=== PATIENT | female | born 2000 | race Caucasian/White ===

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

== ENCOUNTER 2022-01-20 08:12 | Emergency (ER) | payer BC, OTHER, SELFPAY ==
--- NOTE | 2022-01-20 08:17 | ED.URI ---
HPI - URI/Sore Throat General Chief Complaint: Upper Respiratory Infection Stated Complaint: Sore Throat,Cough Time Seen by Provider: 01/20/22 08:23 Source: patient, RN notes reviewed and old records reviewed Mode of arrival: ambulatory Limitations: no limitations History of Present Illness HPI Narrative: 21-year-old female presents to the [facility] with complaints of sore throat and cough since Thursday, 2 days. Tried taking Mucinex yesterday. She used a nebulizer treatment 1 hour prior to arrival for the 1st time. Reports a fever of 99.9 yesterday. No other treatment prior to arrival Related Data Allergies Allergy/AdvReac Type Severity Reaction Status Date / Time No Known Allergies Allergy Unknown Verified 01/20/22 08:19 Review of Systems Review of Systems: All systems reviewed & are unremarkable except as noted in HPI and below Constitutional: Constitutional: Reports no additional constitutional complaints, Denies chills and Denies fever(s) Eyes: Eyes: Reports no additional eye complaints ENT: Reports as per HPI and Reports sore throat Cardiovascular: Cardiovascular: Reports no additional cardiovascular complaints Respiratory: Respiratory: Reports as per HPI and Reports cough Gastrointestinal: Gastrointestinal: Reports no additional gastrointestinal complaints Musculoskeletal: Musculoskeletal: Reports no additional musculoskeletal complaints Integumentary/Breasts: Skin/Breast: Reports system reviewed and no additional complaints, except as docu Neurologic: Reports system reviewed and no additional complaints, except as documented Psychiatric: Psychiatric: Reports no additional psychiatric complaints Allergic/Immunologic: Allergic/Immunologic: Reports no additional allergic/immunologic complaints PMFSH Past Medical History Medical History (Updated 01/20/22 @ 08:34 by Lauren Muse APRN) Acute seasonal allergic rhinitis Surgical History Surgical History (Updated 01/20/22 @ 08:30 by Lauren Muse APRN) No pertinent past surgical history Social History Social History (Updated 01/20/22 @ 08:18 by Lauren Muse APRN) Gender identity (if verbalized by the patient): Female Comments At the time of my signature, I reviewed and agree with the nursing past medical, surgical, social, and family history. There is no relevant family history pertinent to the patient complaint. Exam Const: General: healthy appearing, no acute distress, alert and well nourished Nutritional Appearance: well nourished Orientation/consciousness: patient oriented x3 Limitations: no limitations HENMT: Head: normal to inspection Ears: external ears normal, TM's normal bilaterally and EAC's normal Face/Nose/Sinus: Normal external nose present and Normal nares present Face and sinus: normal facial exam Mouth: Yes Normal oral and palatal mucosa present, Yes lip normal and Yes moist mucous membranes Throat: posterior oropharynx normal, tonsils normal, uvula midline, postnasal drainage and no uvular edema Eyes: General: appearance normal, both eyes and all related structures Conjunctivae: conjunctivae normal Pupils: Equal, round and reactive pupils present Neck: Neck: normal visual inspection, no lymphadenopathy and no meningeal signs Chest: Chest palpation & inspection: normal inspection of the chest Resp: Effort & Inspection: normal respiratory effort and no use of accessory muscles Auscultation: clear to auscultation bilaterally, no crackles, no rales, no rhonchi and no wheezes Cardio: Rate: tachycardic Rhythm: regular rhythm Skin: General skin exam: normal color Rashes: no rashes Wounds: no wounds Neuro: General: patient oriented x3, moves all extremities, no meningeal signs and no focal motor deficits Cranial nerves: Yes Equal, round and reactive pupils present Speech: normal speech Gait exam (Neuro): Normal gait present Extrem: General: normal to inspection, full ROM and capillary refill normal Psych: Pavithra
[2022-01-20 08:23] VITALS: BP 142/90; PULSE 120; RESP 16; TEMP 37.1; O2SAT 99
== END 2022-01-20 08:40 | disposition home or self-care (01) ==
PROVIDERS: Emergency Provider Nurse Practitioner; PCP Pediatrics
DX: J10.1 Influenza due to other identified influenza virus with other respiratory manifestations (principal); Z20.822 Contact with and (suspected) exposure to COVID-19
CPT/HCPCS: 87426; 87804; 99213; C9803; G0463

== ENCOUNTER 2022-04-22 08:20 | Emergency (ER) | payer OTHER, SELFPAY ==
--- NOTE | 2022-04-22 08:25 | ED.URI ---
HPI - URI/Sore Throat General Chief Complaint: Upper Respiratory Infection Stated Complaint: congestion Time Seen by Provider: 04/22/22 08:22 Source: patient Mode of arrival: ambulatory Limitations: no limitations History of Present Illness HPI Narrative: Corin is a 21-year-old female patient presenting to the clinic today with complaints of nasal and chest congestion and cough x1 day. She reports no fever or chills. Does have very slight sore throat due to the drainage. No known exposure to anybody with COVID, flu, or strep. MD elicited complaint: nasal congestion Related Data Home Medications Medication Instructions Recorded Confirmed norgestimate-ethinyl estradiol 1 tablet PO DAILY 01/20/22 04/22/22 0.18 mg/0.215mg/0.25mg-35 mcg(28)tablet (Tri-Sprintec (28)) Allergies Allergy/AdvReac Type Severity Reaction Status Date / Time No Known Allergies Allergy Unknown Verified 04/22/22 08:28 Review of Systems Review of Systems: Pertinent positives per HPI. Patient denies any fever, chills, rash, headache, visual changes, dizziness, shortness of breath, chest pain, palpitations, nausea, vomiting, diarrhea, constipation, abdominal pain, or any urinary issues. [facility] Past Medical History Medical History Acute seasonal allergic rhinitis Surgical History Surgical History No pertinent past surgical history Social History Social History Gender identity (if verbalized by the patient): Female Comments At the time of my signature, I reviewed and agree with the nursing past medical, surgical, social, and family history. There is no relevant family history pertinent to the patient complaint. Exam Narrative: General: Well-developed, well nourished, in no apparent distress Head: Normocephalic, atraumatic Eyes: Pupils equally round and reactive to light bilaterally, EOM intact, sclera and conjunctive clear, no discharge, lids normal Ears: TMs intact and clear, ear canals clear, no drainage, grossly hearing normal. Nose: Nares patent, clear nasal discharge, no inflammation, no sinus tenderness. Mouth: Oral pharynx without lesions or masses, good dentition, MMM. Postnasal drip Neck: Supple, trachea midline, no enlargement of anterior or posterior cervical nodes, no thyroid masses or goiter palpable. Cardio: Regular rate and rhythm, s1 and s2 normal, no murmur appreciated. Resp: Clear to auscultation bilaterally, no rhonchi, rales, wheezing or rubs Course Course Emergency Course: Portions of this record may have been created with voice recognition software. Level of Care: Express Care Visit Vital Signs Vital signs: Vital signs reviewed MDM - URI/Sore Throat MDM Narrative Medical decision making narrative: At the time of visit patient is resting comfortably on the exam table. I suspect patient has URI. Supportive measures were discussed with the patient she voiced understanding of discharge instructions and agrees to treatment plan. Prescription for prednisone was sent to the pharmacy to help with the congestion. Differential Diagnosis Differential diagnosis: Likely upper respiratory infection, otitis media, sinusitis, viral infection, bronchitis, influenza, pharyngitis and other (COVID) Discharge Plan Discharge Clinical Impression: Upper respiratory infection Patient Disposition: Home, Self-Care Condition: Stable Instructions: Antibiotic Form, Upper Respiratory Infection (ED) Additional Instructions: Lung sounds are clear in the clinic today. Take prescription medications only as prescribed-prednisone Increase fluids and stay well hydrated Tylenol/motrin for pain/fever Flonase and OTC antihistamines as directed Vicks vapor rub to open sinuses Sinus rinses for congestion Cepacol spray, c
[2022-04-22 08:28] VITALS: BP 130/72; PULSE 107; RESP 16; TEMP 36.2; O2SAT 100
== END 2022-04-22 08:37 | disposition home or self-care (01) ==
PROVIDERS: Emergency Provider Nurse Practitioner Family; PCP Pediatrics
DX: J06.9 Acute upper respiratory infection, unspecified (principal)
CPT/HCPCS: 99213; G0463

== ENCOUNTER 2023-03-20 14:09 | Emergency (ER) | payer OTHER, SELFPAY ==
[2023-03-20 15:11] VITALS: BP 129/76; PULSE 90; RESP 16; TEMP 36.8; O2SAT 99
--- NOTE | 2023-03-20 15:41 | ED.NAVMDI ---
HPI - Nausea/Vomiting/Diarrhea General Chief complaint: Nausea/Vomiting/Diarrhea Stated complaint: nauseated, not able to eat or drink Time Seen by Provider: 03/20/23 15:41 Source: patient and RN notes reviewed Mode of arrival: ambulatory Limitations: no limitations History of Present Illness HPI Narrative: 22 y/o female presented for c/o nausea and diarrhea this week. Onset 5 days. States she only had diarrhea when she ate, so she did not eat a few days this week. Endorses mild epigastric discomfort. Denies vomiting, hematochezia, sob, wheezing, lethargy or fever. Related Data Home Medications Medication Instructions Recorded Confirmed norgestimate-ethinyl estradiol 1 tablet PO DAILY 01/20/22 03/20/23 0.18 mg/0.215mg/0.25mg-35 mcg(28)tablet (Tri-Sprintec (28)) Allergies Allergy/AdvReac Type Severity Reaction Status Date / Time No Known Allergies Allergy Unknown Verified 03/20/23 15:14 Review of Systems Review of Systems: CONSTITUTIONAL: Denies body aches, fever, chills ENT: Denies rhinorrhea, congestion CARDIOVASCULAR: Denies chest pain, palpitations, or edema. RESPIRATORY: Denies cough or dyspnea. GASTROINTESTINAL: Endorses epigastric abdominal pain, nausea, diarrhea. Denies vomiting, hematochezia, melena, hematemesis GENITOURINARY: Denies dysuria, hematuria, or CVA tenderness. SKIN: Denies rash, itching, or wounds. MUSCULOSKELETAL: Denies back pain, joint pain, or myalgia. NEUROLOGIC: Denies headache, numbness, tingling, or weakness. All systems reviewed & are unremarkable except as noted in HPI and below PMFSH Past Medical History Medical History Acute seasonal allergic rhinitis Surgical History Surgical History No pertinent past surgical history Social History Social History Gender identity (if verbalized by the patient): Female Comments At time of signature, I have reviewed and agree with nursing past medical, surgical, social and family history unless otherwise noted. Please see nursing chart for further information. There is no relevant family history pertinent to the presenting complaint Exam Narrative: GENERAL: Well-appearing, and in no acute distress. EYES: EOMI. Conjunctivae normal. ENT: Mucous membranes pink and moist. CHEST: No respiratory distress. Clear to auscultation. HEART: Regular rate and rhythm. No murmur appreciated. Normal peripheral pulses. ABDOMEN: abd soft, nondistended, normal active bowel sounds. Mildly tender abdomen epigastric and left lower quadrant: No guarding, rebound tenderness, asymmetry EXTREMITIES: Normal range of motion. No edema. SKIN: Warm, dry, no rash. Capillary refill normal. Normal skin turgor. NEURO: No focal deficits. Alert and oriented x3. PSYCH: Normal affect. Course Course Emergency Course: Patient is aware of diagnosis, understands and agrees to treatment plan. Anticipatory guidance given. Patient agrees to follow-up as directed and is aware of reasons to seek care at the emergency department. Portions of this record may have been created with voice recognition software Level of Care: Express Care Visit Vital Signs Vital signs: Vital Signs Temperature 98.3 F 03/20/23 15:11 Pulse Rate 90 03/20/23 15:11 Respiratory Rate 16 03/20/23 15:11 Blood Pressure 129/76 03/20/23 15:11 Pulse Oximetry 99 03/20/23 15:11 Oxygen Delivery Room Air 03/20/23 15:11 Temperature 98.3 F 03/20/23 15:11 Pulse Rate 90 03/20/23 15:11 Respiratory Rate 16 03/20/23 15:11 Blood Pressure 129/76 03/20/23 15:11 Pulse Oximetry 99 03/20/23 15:11 Oxygen Delivery Room Air 03/20/23 15:11 MDM - Nausea/Vomiting/Diarrhea MDM Narrative Medical decision making narrative: Discussed physical exam findings. Agreeable to Rx zofran. Advised
== END 2023-03-20 15:59 | disposition home or self-care (01) ==
PROVIDERS: Emergency Provider Nurse Practitioner Family; PCP Pediatrics
DX: R11.0 Nausea (principal)
CPT/HCPCS: 99213; G0463

== ENCOUNTER 2023-09-19 08:14 | Emergency (ER) | payer OTHER, SELFPAY ==
[2023-09-19 08:32] VITALS: BP 134/85; PULSE 102; RESP 16; TEMP 37.3; O2SAT 99
--- NOTE | 2023-09-19 08:37 | ED.GENADULT ---
HPI - General Adult General Chief complaint: Urogenital-Female Stated complaint: urinary issue Time Seen by Provider: 09/19/23 08:39 Source: patient, RN notes reviewed and old records reviewed Mode of arrival: ambulatory Limitations: no limitations History of Present Illness HPI narrative: Patient presents with complaints of urinary burning and frequency since yesterday. She denies any fever, chills, sweats. She denies any back pain. She does report some nausea without vomiting. She does maintain that she is able to eat and drink without difficulty. She has not taken anything for her symptoms. She is otherwise healthy. Related Data Home Medications Medication Instructions Recorded Confirmed norgestimate-ethinyl estradiol 1 tablet PO DAILY 01/20/22 09/19/23 0.18 mg/0.215mg/0.25mg-35 mcg(28)tablet (Tri-Sprintec (28)) Allergies Allergy/AdvReac Type Severity Reaction Status Date / Time No Known Allergies Allergy Unknown Verified 09/19/23 08:31 Review of Systems Review of Systems: All systems reviewed & are unremarkable except as noted in HPI and below Constitutional: Constitutional: Reports no additional constitutional complaints ENT: Reports system reviewed and no additional complaints, except as documented Cardiovascular: Cardiovascular: Reports no additional cardiovascular complaints Respiratory: Respiratory: Reports no additional respiratory complaints Gastrointestinal: Gastrointestinal: Reports no additional gastrointestinal complaints, Denies abdominal pain and Reports nausea Genitourinary: Genitourinary: Reports hematuria, Reports nocturia, Denies flank pain, Denies urinary incontinence, Reports urinary hesitancy and Reports urinary urgency PMFSH Past Medical History Medical History Acute seasonal allergic rhinitis Surgical History Surgical History No pertinent past surgical history Social History Social History Gender identity (if verbalized by the patient): Female Comments At the time of my signature, I reviewed and agree with the nursing past medical, surgical, social, and family history. There is no relevant family history pertinent to the patient complaint. Exam Const: General: cooperative, no acute distress, alert and awake Orientation/consciousness: oriented to person, oriented to place and oriented to time HENMT: Head: normal to inspection Resp: Effort & Inspection: normal respiratory effort and able to speak in complete sentences Auscultation: clear to auscultation bilaterally, no crackles, no rales, no rhonchi and no wheezes Cardio: Palpation: normal PMI Rate: regular rate Rhythm: regular rhythm Heart sounds: S1 normal heart sound present and S2 normal heart sound present Other: Mildly tachycardic GI: GI Palp: No abdominal tenderness, Yes Soft to palpation, No Tenderness to palpation present (GI) and No Rigid due to palpation Auscultation: normal bowel sounds : General: Yes bladder normal to palpation and Yes no CVA tenderness Neuro: General: oriented to person, oriented to place and oriented to time Cranial nerves: Yes CN's II-XII intact bilaterally Psych: Appearance: grossly normal Thought process: Normal thought process present Insight: Good insight present (Psych) Judgement: Good judgement present (Psych) Course Course Level of Care: Express Care Visit Vital Signs Vital signs: Vital Signs Temperature 99.1 F 09/19/23 08:32 Pulse Rate 102 H 09/19/23 08:32 Respiratory Rate 16 09/19/23 08:32 Blood Pressure 134/85 09/19/23 08:32 Pulse Oximetry 99 09/19/23 08:32 Oxygen Delivery Room Air 09/19/23 08:32 Temperature 99.1 F 09/19/23 08:32 Pulse Rate 102 H 09/19/23 08:32 Respiratory Rate 16 09/19/23 08:32 Blood Pressure 134/85 09/19/23 08:32 Pulse Oxime
== END 2023-09-19 08:57 | disposition home or self-care (01) ==
PROVIDERS: Emergency Provider Nurse Practitioner Family
DX: N39.0 Urinary tract infection, site not specified (principal); B96.20 Unspecified Escherichia coli [E. coli] as the cause of diseases classified elsewhere
CPT/HCPCS: 81003; 87077; 87086; 87088; 87186; 99213; G0463

== ENCOUNTER 2023-12-13 14:17 | Emergency (ER) | payer OTHER, SELFPAY ==
[2023-12-13 14:30] VITALS: BP 121/71; PULSE 84; RESP 18; TEMP 36.7; O2SAT 100
[2023-12-13 14:50] LABS: EDUAAPPEAR Clear; EDUABILI Negative (Negative); EDUABLOOD 1+ (Negative); EDUACOLOR1 Yellow; EDUAGLUCOSE Negative (Negative); EDUAKETONE Negative (Negative); EDUALEUKO Negative (Negative); EDUANITRATE Negative (Negative); EDUAPROTEIN Negative (Negative); EDUAUROBILI 0.2
--- NOTE | 2023-12-13 15:11 | ED.GENADULT ---
HPI - General Adult General Chief complaint: Urogenital-Female Stated complaint: UTI Source: patient Mode of arrival: ambulatory Limitations: no limitations History of Present Illness HPI narrative: Patient presents for evaluation of urinary symptoms that started two days ago. Symptoms include urinary frequency, suprapubic pain, and hematuria. She had similar symptoms in the past with UTI. She increased her water consumption and consumed cranberry juice yesterday and her symptoms have resolved. LMP 1 week ago. She is compliant with oral contraception. She is sexually active with 1 male partner. He is asymptomatic. She had a slight amount of vaginal bleeding and discharged yesterday but those have resolved. No fever, chills, nausea vomiting. Related Data Home Medications Medication Instructions Recorded Confirmed norgestimate-ethinyl estradiol 1 tablet PO DAILY 01/20/22 12/13/23 0.18 mg/0.215mg/0.25mg-35 mcg(28)tablet (Tri-Sprintec (28)) Allergies Allergy/AdvReac Type Severity Reaction Status Date / Time No Known Allergies Allergy Unknown Verified 09/19/23 08:31 Review of Systems Review of Systems: CONSTITUTIONAL: Denies fever, chills, or sweats. EYES: Denies visual changes, redness, or discharge. ENT: Denies rhinorrhea, congestion, sore throat, or otalgia. CARDIOVASCULAR: Denies chest pain, palpitations, or edema. RESPIRATORY: Denies cough or dyspnea. GASTROINTESTINAL: Denies abdominal pain, nausea, vomiting, or diarrhea. GENITOURINARY: Reports recent urinary frequency, hematuria, suprapubic discomfort, small amount of vaginal bleeding/discharge yesterday all now resolved SKIN: Denies rash or itching. MUSCULOSKELETAL: Denies back pain, joint pain, or myalgia. NEUROLOGIC: Denies headache, numbness, dizziness, or weakness. PSYCHIATRIC: Denies anxiety or depression. [facility] Past Medical History Medical History Acute seasonal allergic rhinitis Surgical History Surgical History No pertinent past surgical history Family History Family History Mother Family history non-contributory Social History Social History (Reviewed 12/13/23 @ 15:14 by Mike Vazquez, [facility], ) Smoking status: Never smoker Alcohol intake: never Substance use: never Gender identity (if verbalized by the patient): Female Sexual Orientation (if Verbalized by the Patient): Straight or Heterosexual Spiritual care concerns: No Exam Narrative: GENERAL: Well-appearing, well-nourished, and in no acute distress. HEAD: Normocephalic, atraumatic. EYES: PERRLA and EOMI. ENT: Nares clear, no rhinorrhea or epistaxis. Mucous membranes moist. Oropharynx without tonsillar hypertrophy exudate or other lesions. Bilateral TMs pearly wilson nonbulging NECK: Supple. No adenopathy or masses. No carotid bruits or JVD CHEST: Clear to auscultation. No respiratory distress. No wheezes rales or rhonchi HEART: Regular rate and rhythm. No murmur heard. Normal peripheral pulses. ABDOMEN: Soft, nontender, nondistended, normal active bowel sounds. EXTREMITIES: Normal range of motion. No edema. SKIN: Warm, dry, no rash. NEURO: No focal deficits. Alert and oriented x3. PSYCH: Normal mood and affect. Course Course Emergency Course: this is a 23-year-old female who presented for evaluation of urinary symptoms that started 2 days ago and resolved yesterday. There is no evidence of infection in her urine today. I did offer to check her for STIs and perform a pelvic exam to also rule out bacterial vaginosis. She declined. She states she is asymptomatic now. She is advised to follow-up with her primary care provider. She is also instructed to go to the emergency department the event that she has recurrence or worsening symptoms. Patient is in agr
[2023-12-13 15:17] LABS: BEDSIDEPREGUCG Negative (Negative)
== END 2023-12-13 15:12 | disposition home or self-care (01) ==
PROVIDERS: Emergency Provider Nurse Practitioner
DX: R35.0 Frequency of micturition (principal); R31.9 Hematuria, unspecified; R10.30 Lower abdominal pain, unspecified
CPT/HCPCS: 81003; 81025; 99212; G0463

== ENCOUNTER 2024-02-25 09:42 | Emergency (ER) | payer OTHER, SELFPAY ==
--- NOTE | ~2024-02-25 | XR_ITS ---
EXAMINATION: XR chest 2V DATE: 02/25/2024 10:12 INDICATION: Cough and shortness of breath. TECHNIQUE: Frontal and lateral views of the chest were obtained. COMPARISON: None. FINDINGS: There is no pneumonia, pleural effusion, or pneumothorax. The heart size is normal. IMPRESSION: 1. No acute cardiopulmonary disease. Reviewed, dictated and finalized at location A. [facility]
[2024-02-25 09:53] VITALS: BP 134/84; PULSE 105; RESP 16; TEMP 36.8; O2SAT 100
--- NOTE | 2024-02-25 10:05 | ED_ITS ---
HPI - URI/Sore Throat General Chief Complaint: Nausea/Vomiting/Diarrhea Stated Complaint: dizzy,threw up,shaky Time Seen by Provider: 02/25/24 09:45 Source: patient Mode of arrival: ambulatory Limitations: no limitations History of Present Illness HPI Narrative: Corin is a 23-year-old female patient presenting to the clinic today with complaints of dizziness, vomiting, shortness of breath, and feeling shaky. She reports that the symptoms just started when she woke up this morning. Denies any fever, chills, body aches, chest pain, urinary symptoms, or URI symptoms. She is currently on her menses. Denies any chance of . States that her parents had similar symptoms to this and they were both diagnosed with pneumonia. Takes control. Denies cigarette smoking or vaping. No recent travel. No history of diabetes. Related Data Home Medications Medication Instructions Recorded Confirmed norgestimate-ethinyl estradiol 1 tablet PO DAILY 01/20/22 12/13/23 0.18 mg/0.215mg/0.25mg-35 mcg(28)tablet (Tri-Sprintec (28)) Allergies Allergy/AdvReac Type Severity Reaction Status Date / Time No Known Allergies Allergy Unknown Verified 02/25/24 10:17 Review of Systems Review of Systems: Pertinent positives per HPI. Patient denies any fever, chills, rash, headache, visual changes, cough, runny nose, sore throat, chest pain, palpitations, vomiting, diarrhea, constipation, abdominal pain, or any urinary issues. [facility] Past Medical History Medical History Acute seasonal allergic rhinitis Surgical History Surgical History No pertinent past surgical history Family History Family History Mother Family history non-contributory Social History Social History Smoking status: Never smoker Alcohol intake: never Substance use: never Gender identity (if verbalized by the patient): Female Sexual Orientation (if Verbalized by the Patient): Straight or Heterosexual Spiritual care concerns: No Comments At the time of my signature, I reviewed and agree with the nursing past medical, surgical, social, and family history. There is no relevant family history pertinent to the patient complaint. Course Course Emergency Course: Portions of this record may have been created with voice recognition software. Level of Care: Express Care Visit Vital Signs Vital signs: Vital Signs Temperature 36.8 C 02/25/24 09:53 Pulse Rate 105 H 02/25/24 09:53 Respiratory Rate 16 02/25/24 09:53 Blood Pressure 134/84 02/25/24 09:53 Pulse Oximetry 100 02/25/24 09:53 Oxygen Delivery Room Air 02/25/24 09:53 Temperature 36.8 C 02/25/24 09:53 Pulse Rate 105 H 02/25/24 09:53 Respiratory Rate 16 02/25/24 09:53 Blood Pressure 134/84 02/25/24 09:53 Pulse Oximetry 100 02/25/24 09:53 Oxygen Delivery Room Air 02/25/24 09:53 Vital signs reviewed MDM - URI/Sore Throat MDM Narrative Medical decision making narrative: At the time of visit patient is resting comfortably on the exam table. Patient appears to be nontoxic. EKG: EKG shows sinus rhythm with heart rate of 93 beats per minute. No ST elevation, depression, or T-wave inversion noted. Labs: Bedside glucose was 91 in the clinic today. COVID and influenza testing was negative in the clinic today. Urinalysis shows blood otherwise no sign of infection-patient is on her menses Diagnostics: Chest x-rays negative for any acute cardiopulmonary process. Orthostatics B/P: Within normal limits Risk for PE- Wells Criteria-1.5?points Low risk group: 1.3% chance of PE in an ED population. Another study assigned scores <=4 as ?PE Unlikely? and had a 3% incidence of PE. Plan: I suspect patient has acute vertigo with nausea and dyspnea. Patient is able to speak in full sentences and her oxygen saturations 100% on room air. Lung sounds are clear and she does not appear to be in any respiratory distress. Wells criteria it shows a 1. 3% chance of a PE which is very low risk. Will send patient home with meclizine and Zofran. Supportive measures were discussed with the patient and they voiced understanding discharge instructions and agrees to treatment plan. Return precautions reviewed Differential Diagnosis Differential diagnosis: Likely upper respiratory infection, otitis media, sinusitis, viral infection, bronchitis, influenza, pharyngitis and other (Pneumonia, vertigo, dyspnea) Imaging Data Radiologist's impression: ITS Impressions Chest X-Ray 02/25/24 10:19 IMPRESSION: 1. No acute cardiopulmonary disease. ECG Data EKG #1: Attestation: I personally reviewed and interpreted this ECG as follows: ECG completion date: 02/25/24 ECG completion time: 10:53 Prior ECG tracings: not available for review Interpretation: EKG shows sinus rhythm with heart rate of 93 beats per minute without ST elevation, depression, or T-wave inversion. HI interval is 146 milliseconds, QRS durations 98 milliseconds, QT-QTC is 363-414 milliseconds, P-R-T axis is 44 93 31 Discharge Plan Discharge Clinical Impression: Dizziness, Nausea, Shortness of breath Patient Disposition: Home, Self-Care Condition: Stable Instructions: Antibiotic Form, Acute Nausea and Vomiting (ED), Dizziness (ED), Shortness of Breath (ED) Additional Instructions: Take prescription medications only as prescribed-meclizine and Zofran Change positions slowly Eat well-balanced meals Increase fluids and stay well hydrated Tylenol/motrin for pain/fever Flonase and OTC antihistamines as directed Vicks vapor rub to open sinuses Sinus rinses for congestion Cepacol spray, cough drops, throat lozenges, warm tea with honey/lemon, gargle salt water to soothe throat BRAT diet for diarrhea Clear liquids x 24 hours then advance as tolerated for nausea/vomiting Go to the ED if you develop a worsening in your condition- high fever not controlled by Tylenol or Motrin, worsening of dizziness, dehydration, weakness, lethargy, worsening of shortness of breath, or chest pain. Follow up with your PCP in 3-5 days if symptoms persist. Prescriptions: New ondansetron 4 mg tablet,disintegrating 4 mg PO Q6H PRN (Reason: nausea and vomiting) 3 Days Qty: 12 0RF meclizine 25 mg tablet 25 mg PO TID PRN (Reason: dizziness) 7 Days Qty: 21 0RF No Action norgestimate-ethinyl estradiol [Tri-Sprintec (28)] 0.18/0.215/0.25 mg-35 mcg (28) tablet 1 tablet PO DAILY Follow-up/Referrals: Gonzalez,Calli Harry DO [Primary Care Provider] - Time of Disposition: 11:21 Quality NIHSS Nursing Documentation ED NIHSS nursing documentation: reviewed/agree
--- NOTE | 2024-02-25 10:39 | ECG_ITS ---
Test Date: 2024-02-25 10:53:43 Measurements Intervals Wesley Rate: 93 P: 44 AR: 146 QRS: 93 QRSD: 98 T: 31 QT: 363 QTc: 453 Interpretive Statements SINUS RHYTHM POSSIBLE LEFT ATRIAL ENLARGEMENT [-0.1mV P WAVE IN V1/V2] BORDERLINE RIGHT AXIS DEVIATION [QRS AXIS > 90] No previous ECG available for comparison Electronically Signed On 02-25-2024 11:39:39 SPEECH LANGUAGE THERAPIST by Narendra Lazcano M.D.
[2024-02-25] MEDS: ONDANSETRON HCL ODT 4 MG TABLET SUBLINGUAL (10:55)
[2024-02-25] MEDS: MECLIZINE HCL 25 MG TABLET PO (10:55)
[2024-02-25 10:57] LABS: Glucose Point of Care 91 mg/dl (65-105)
[2024-02-25 10:58] VITALS: BP 133/76; BP 134/87; BP 138/90; PULSE 93; PULSE 97
[2024-02-25 11:03] LABS: EDCOVIDSCREEN Negative (Negative); EDINFLUASCREEN Negative (Negative); EDINFLUBSCREEN Negative (Negative)
[2024-02-25 11:17] LABS: EDUAAPPEAR Clear; EDUABILI Negative (Negative); EDUABLOOD 2+ (Negative); EDUACOLOR1 Yellow; EDUAGLUCOSE Negative (Negative); EDUAKETONE Negative (Negative); EDUALEUKO Negative (Negative); EDUANITRATE Negative (Negative); EDUAPROTEIN Trace (Negative); EDUASPGRAVITY 1.025; EDUAUROBILI 0.2
== END 2024-02-25 11:26 | disposition home or self-care (01) ==
PROVIDERS: Emergency Provider Nurse Practitioner Family; PCP Family Medicine
DX: R42 Dizziness and giddiness (principal); R11.0 Nausea; R06.02 Shortness of breath; Z20.822 Contact with and (suspected) exposure to COVID-19
CPT/HCPCS: 71046; 81003; 82948; 87426; 87804; 93005; 99213; A9270; G0463